=== PATIENT | female | born 1950 | race Caucasian/White ===

== ENCOUNTER 2017-01-20 07:52 | Emergency (ER) | payer MEDICARE, OTHER ==
[~2017-01-20 07:52] MED LIST: ACTOS DPS15 MG PO; COUMADIN5 MG PO; CRESTOR20 MG PO; FLEXERIL-DPS10 MG PO; GLUCOPHAGE-DPS500 MG PO; LASIX40 M1 PO; LOVENOX SQ; MAXZIDE-25 DPS1 TAB PO; METOPROLOL ER PO; NORCO 7.5-3251 EACH PO; OXYCONTIN PO; PRILOSEC DPS20 MG PO; SENNA S PO; TYLENOL325 MG PO; VASOTEC DPS2.5 MG PO
--- NOTE | 2017-02-07 15:00 | ER ---
ADMIT: 01/20/2017 RM/LOC: ER [facility] MR#: [id number] [address] [facility] [id number] SONYAJENNY COLLIN Alex [address] [place] [address] Emergency Room Report SEX: F AGE: 67 : 1950 DATE: 01/20/2017 ADDENDUM: A 67-year-old white female coming with right knee pain. Kind of lateral collateral ligament area. Does not remember having any trauma to it. X- ray shows a right knee degenerative joint disease. Cannot rule out internal derangement. Set her up to see Ortho in a.m. Put her in an samira as well as a postop knee splint. I put her on [place] 5/325, 1 to 2 p.o. every 6 p.r.n. pain #20 and follow up accordingly. CONDITION ON DISCHARGE: Fair. Ian Dotson MD/ esther JOB #: [id number] CC: Ian Dotson MD, Attending Physician Alex Mcgovern MD, Family Physician
== END 2017-01-20 09:00 | disposition home or self-care (01) ==
LOC: ER 07:52
DX: M17.11 Unilateral primary osteoarthritis, right knee (principal); E11.9 Type 2 diabetes mellitus without complications; I10 Essential (primary) hypertension; E78.5 Hyperlipidemia, unspecified; Z79.84 Long term (current) use of oral hypoglycemic drugs; Z79.899 Other long term (current) drug therapy; Z90.710 Acquired absence of both cervix and uterus

== ENCOUNTER 2017-01-30 10:52 | Emergency (ER) | payer MEDICARE, OTHER ==
--- NOTE | 2017-02-09 01:04 | ER ---
ADMIT: 01/30/2017 RM/LOC: ER [facility] MR#: [id number] [address] [address] COLLIN MCKINLEY [address] [place] [address] Emergency Room Report SEX: F AGE: 67 : 1950 DATE: 01/30/2017 ADDENDUM: A 67-year-old female, comes in with concerns of possibly being short of breath and she is concerned she might have a DVT. The patient did have a scope of her right knee done yesterday and states that this morning she felt like she was maybe a little more short of breath than normal and had a hoarse voice, so she wanted to come in to get checked out. She does have a history of PE in the past after she had back surgery before. She denies any chest pain while here. Vital signs are stable. Oxygen saturations are fine. She is not tachycardic, and on physical exam, she has no calf tenderness, cords, or pedal edema. I did check a D-dimer, which was normal. She does have a slightly hoarse character to her voice, but she did get intubated yesterday. She has no stridor and was moving air well. Airway is patent. The patient feels fine being discharged at this time and has normal D-dimer. I am not concerned about PE at this time. She is discharged home to follow up with the regular physician as needed and can return to the ER if any concerning symptoms arise, and she is told that even though she does not have a DVT now there is always the possibility she could develop one and if she is concerned she should return to the ER. Jj Huff MD/ esther JOB #: [id number] CC: Jj Huff MD, Attending Physician Alex Mcgovern MD, Family Physician
== END 2017-01-30 13:58 | disposition home or self-care (01) ==
LOC: ER 10:52
DX: F41.9 Anxiety disorder, unspecified (principal); E11.9 Type 2 diabetes mellitus without complications; Z90.710 Acquired absence of both cervix and uterus; Z79.82 Long term (current) use of aspirin

== ENCOUNTER → 2017-05-27 | Outpatient (CLI) | payer MEDICARE, OTHER | END | disposition home or self-care (01) | LOC: RAD.S 05-06 13:40 | DX: Z12.31 Encounter for screening mammogram for malignant neoplasm of breast (principal); M81.0 Age-related osteoporosis without current pathological fracture; M85.88 Other specified disorders of bone density and structure, other site; Z78.0 Asymptomatic menopausal state ==